=== PATIENT | female | born 1995 ===

== ENCOUNTER 2019-04-09 14:16 | Emergency (ER) | payer OTHER, SELFPAY ==
[2019-04-09 14:49] VITALS: BP 115/74; PULSE 66; RESP 18; TEMP 36.2; O2SAT 99; BMI 26.6
--- NOTE | 2019-04-09 16:34 | ED.WOUNDLAC ---
HPI - Wound/Laceration <AMANDA Denis - Last Filed: 04/09/19 20:57> General Chief Complaint: Wound/Laceration Stated Complaint: cut on pinky,left hand Time Seen by Provider: 04/09/19 16:05 Mode of arrival: Ambulatory History of Present Illness HPI narrative: 24-year-old female presents to the emergency department complaining of a laceration to her left 5th finger while washing dishes. She states she believes she was cup bandage. She states her tetanus was approximately 6 years ago. She denies any numbness, tingling, difficulty moving finger, continued bleeding, severe pain, nausea, vomiting, diarrhea, chest pain, shortness of breath, or other concerns. Related Data Allergies Allergy/AdvReac Type Severity Reaction Status Date / Time No Known Drug Allergies Allergy Verified 04/09/19 15:13 Review of Systems <AMANDA Denis - Last Filed: 04/09/19 20:57> Review of Systems Narrative: REVIEW OF SYSTEMS: GENERAL: Denies fever or chills. HENT: Denies head trauma. EYE: Denies double vision or vision loss. CARDIOVASCULAR: Denies syncope. MUSCULOSKELETAL: Denies weakness, or deformities. INTEGUMENTARY: Complains of left 5th finger laceration, see HPI. NEURO: Denies numbness or tingling. Patient History <AMANDA Denis - Last Filed: 04/09/19 20:57> Medical History No significant medical problems (Acute) Social History Smoking Status: Current every day smoker Smoking Status: Current every day smoker alcohol intake frequency: 0-2 drinks per day Substance Use Type: does not use Exam <AMANDA Denis - Last Filed: 04/09/19 20:57> Initial Vital Signs Initial Vital Signs: Vital Signs Temperature 97.2 F L 04/09/19 14:49 Pulse Rate 66 04/09/19 14:49 Respiratory Rate 18 04/09/19 14:49 Blood Pressure 115/74 04/09/19 14:49 Pulse Oximetry 99 04/09/19 14:49 PHYSICAL EXAMINATION: GENERAL: Well groomed, alert, and cooperative. Answers questions promptly and appropriately. Vital signs noted. HENT: Normocephalic, atraumatic. RESPIRATORY: Normal respiratory rate, trachea midline, airway patent. No stridor, nasal flaring or accessory muscle use. MUSCULOSKELETAL: Full range of motion of 5th finger including extension and flexion against resistance. Normal gait and coordination. Equal tone and mass bilaterally. EXTREMITIES: CMS intact. Moves all extremities. SKIN: Warm, dry, soft, appropriate color for ethnicity. 1cm laceration to left finger between MCP and MIP. Wound bed with subcu tissue visible, no foreign body. Bleeding controlled. No surrounding erythema or excudate. NEURO: Alert and Oriented X 3. Good coordination. PSYCH: Appropriate affect and mood. <Mohit Montana DO - Last Filed: 04/09/19 20:59> Initial Vital Signs Initial Vital Signs: Vital Signs Temperature 97.2 F L 04/09/19 14:49 Pulse Rate 66 04/09/19 14:49 Respiratory Rate 18 04/09/19 14:49 Blood Pressure 115/74 04/09/19 14:49 Pulse Oximetry 99 04/09/19 14:49 Procedures <AMANDA Denis - Last Filed: 04/09/19 20:57> Laceration Repair Laceration 1: Site: upper extremity Side (If applicable): left Size (cm): 1 Description: linear Depth: simple, single layer Local Anesthetic: lidocaine 1% Amount of anesthesia used (mL): 1.5 Pre-repair: irrigated extensively Skin layer closed with: nylon Size (cm): 5-0 Number of sutures: 4 Technique: simple, interrupted Course <AMANDA Denis - Last Filed: 04/09/19 20:57> Course Course Narrative: Patient was updated on Tdap, bacitracin and a Band-Aid was applied to the wound. Orders Ordered: Discontinued Medications Bacitracin (Bacitracin) 1 applic TOP NOW ONE Stop: 04/09/19 16:33 Last Admin: 04/09/19 16:51 Dose: 1 applic Documented by: BILLIE Diphtheria/Tetanus/Acell Pertussis (Adacel) 0.5 ml IM .ONCE ONE Stop: 04/09/19 16:33 Last Admin: 04/09/19 16:50 Dose: 0.5 ml Documented by: BILLIE Lidocaine HCl (Xylocaine 1% (Pf)) 2 ml INJ NOW ONE Stop: 04/09/19 16:06 Last Admin: 04/09/19 16:51 Dose: 2 ml Documented by: BILLIE Vital Signs Vital signs: Vital Signs - 8 hr 04/09/19 14:49 Temperature 97.2 F L Pulse Rate 66 Respiratory Rate 18 Blood Pressure 115/74 Pulse Oximetry 99 <Mohit Montana DO - Last Filed: 04/09/19 20:59> Orders Ordered: Discontinued Medications Bacitracin (Bacitracin) 1 applic TOP NOW ONE Stop: 04/09/19 16:33 Last Admin: 04/09/19 16:51 Dose: 1 applic Documented by: BILLIE Diphtheria/Tetanus/Acell Pertussis (Adacel) 0.5 ml IM .ONCE ONE Stop: 04/09/19 16:33 Last Admin: 04/09/19 16:50 Dose: 0.5 ml Documented by: BILLIE Lidocaine HCl (Xylocaine 1% (Pf)) 2 ml INJ NOW ONE Stop: 04/09/19 16:06 Last Admin: 04/09/19 16:51 Dose: 2 ml Documented by: BILLIE Vital Signs Vital signs: Vital Signs - 8 hr 04/09/19 14:49 Temperature 97.2 F L Pulse Rate 66 Respiratory Rate 18 Blood Pressure 115/74 Pulse Oximetry 99 MDM - Wound/Laceration <AMANDA Denis - Last Filed: 04/09/19 20:57> Medical Records Attestation: I reviewed the patient's medical records. Lab Data Attestation: I reviewed the patient's lab results. MDM Narrative Medical decision making narrative: 24-year-old healthy female presenting for a laceration repair left 5th finger. Simple laceration repair without concern for tendon injury as flexion and extension against resistance was present. Sutures were placed, patient tolerated procedure well. No signs of infection such as erythema or swelling. Patient was encouraged to follow up with her primary care provider in 1 week for repeat suture removal. Return precautions given. Patient to plan of care verbalized understanding. Discharge Plan Departure Patient Disposition: Home Clinical Impression: Laceration Discharge Date/Time: 04/09/19 17:11 Instructions: DI for Laceration Repair Activity Restrictions/Additional Instructions: Thank you for entrusting me with your care today. As discussed, 4 stitches were placed in your finger. Please be seen by your primary care provider or walk-in clinic to remove the sutures in about 7 days. Keep the dressing intact for the next 24 hours. Do not submerge your finger in any water such as dishwater or a hot tub until the sutures are removed. You may continue to place Neosporin on your wound for the next week to help with suture removal. Please watch for signs of infection such as increased swelling, purulent drainage, or redness--if these occur be seen immediately. Return emergency department for any new or worsening symptoms. <Mohit Montana, DO - Last Filed: 04/09/19 20:59> Sign Out Provider Sign Out Attestation: Dr Montana Co-Sign Statement: I was available for consultation during this patient's emergency department visit. This chart is signed by myself for administrative purposes only. I did not have direct contact with this patient during this visit. They were seen independently by the APC.
[2019-04-09] MEDS: TET,DIPH,PERTUSS(ACELL),VAC/PF 0.5 ML SYRINGE IM (16:50)
[2019-04-09] MEDS: BACITRACIN OINT 0.9 GM PCKT 1 APPLIC TOP (16:51)
[2019-04-09] MEDS: LIDOCAINE 1% (PF) 2 ML INJ (16:51)
== END 2019-04-09 17:11 | disposition home or self-care (01) ==
PROVIDERS: Emergency Provider Nurse Practitioner
DX: S61.217A Laceration without foreign body of left little finger without damage to nail, initial encounter (principal); W45.8XXA Other foreign body or object entering through skin, initial encounter; Z23 Encounter for immunization
CPT/HCPCS: 12001; 90471; 99283; 90715

== ENCOUNTER 2019-04-10 00:11 | Emergency (ER) | payer OTHER, SELFPAY ==
[2019-04-10 00:20] VITALS: BP 117/80; PULSE 58; RESP 16; TEMP 36.8; O2SAT 99; BMI 26.6
--- NOTE | 2019-04-10 04:07 | PC.NURSE ---
Pt went outside to smoke.
--- NOTE | 2019-04-10 04:19 | ED.WOUNDLAC ---
HPI - Wound/Laceration General Chief Complaint: Wound/Laceration Stated Complaint: left pinkie finger still bleeding after sutures pl Time Seen by Provider: 04/10/19 04:19 Source: patient Mode of arrival: Ambulatory Limitations: no limitations History of Present Illness HPI narrative: The patient lacerated her left 5th finger on doing dishes at home yesterday. She had laceration repair to the left proximal volar digit. Range of motion remains normal. She developed bleeding from the site after leaving the ER. The bleeding in continued out to the level of she was concerned. She had extended ER wait, the bleeding has stopped. She complains of slight tingling to the tip of the finger. Has normal range of motion in the finger. There are no other injuries. She is left-hand dominant. Related Data Allergies Allergy/AdvReac Type Severity Reaction Status Date / Time No Known Drug Allergies Allergy Verified 04/09/19 15:13 Review of Systems Constitutional Comments: Healthy, no chronic medical problems. Musculoskeletal Comments: Recent left finger injury, bleeding from the injury. Integumentary/Breasts Comments: Left 5th finger laceration. Neurologic Comments: Tingling to the tip of the left thumb finger. Patient History Medical History (Updated 04/10/19 @ 04:43 by Abdiel Sandoval MD) No acute medical problems (Acute) No significant medical problems (Acute) Surgical History (Updated 04/10/19 @ 04:39 by Abdiel Sandoval MD) No significant past surgical history (Acute) Social History Smoking Status: Current every day smoker Smoking Status: Current every day smoker alcohol intake frequency: 0-2 drinks per day Substance Use Type: does not use Exam Initial Vital Signs Initial Vital Signs: Vital Signs Temperature 98.3 F 04/10/19 00:20 Pulse Rate 58 L 04/10/19 00:20 Respiratory Rate 16 04/10/19 00:20 Blood Pressure 117/80 04/10/19 00:20 Pulse Oximetry 99 04/10/19 00:20 Skin Rashes: no rashes Other: The patient has a laceration on the proximal, while or left this finger. She has normal range of motion of the digit. There is dry blood at the site. It is noted there significant contusion, I suspect there was a small hematoma in the laceration site. The site is cleansed. The left digit shows normal range of motion. Additional bleeding cannot be demonstrated. A dressing is placed. Course Vital Signs Vital signs: Vital Signs - 8 hr 04/10/19 00:20 Temperature 98.3 F Pulse Rate 58 L Respiratory Rate 16 Blood Pressure 117/80 Pulse Oximetry 99 Discharge Plan Departure Patient Disposition: Home Clinical Impression: Encounter for re-check of laceration wound, Laceration Instructions: How to Care for a Laceration After Repair Activity Restrictions/Additional Instructions: Take the bandage off in 24 hours. Follow-up with her doctor in 10 days for suture removal. Return the ER as needed.
--- NOTE | 2019-04-10 04:52 | ED_ITS ---
HPI - Wound/Laceration General Chief Complaint: Wound/Laceration Stated Complaint: left pinkie finger still bleeding after sutures pl Time Seen by Provider: 04/10/19 04:19 Source: patient Mode of arrival: Ambulatory Limitations: no limitations Related Data Allergies Allergy/AdvReac Type Severity Reaction Status Date / Time No Known Drug Allergies Allergy Verified 04/09/19 15:13 Patient History Medical History (Updated 04/10/19 @ 04:53 by Abdiel Sandoval MD) No acute medical problems (Acute) No significant medical problems (Acute) Surgical History (Updated 04/10/19 @ 04:39 by Abdiel Sandoval MD) No significant past surgical history (Acute) Social History Smoking Status: Current every day smoker Smoking Status: Current every day smoker alcohol intake frequency: 0-2 drinks per day Substance Use Type: does not use Exam Initial Vital Signs Initial Vital Signs: Vital Signs Temperature 98.3 F 04/10/19 00:20 Pulse Rate 58 L 04/10/19 00:20 Respiratory Rate 16 04/10/19 00:20 Blood Pressure 117/80 04/10/19 00:20 Pulse Oximetry 99 04/10/19 00:20 Course Vital Signs Vital signs: Vital Signs - 8 hr 04/10/19 00:20 Temperature 98.3 F Pulse Rate 58 L Respiratory Rate 16 Blood Pressure 117/80 Pulse Oximetry 99 Discharge Plan Departure Patient Disposition: Home Clinical Impression: Encounter for re-check of laceration wound Instructions: How to Care for a Laceration After Repair Activity Restrictions/Additional Instructions: Take the bandage off in 24 hours. Follow-up with her doctor in 10 days for suture removal. Return the ER as mun[facility]leman Stand Alone Forms: Work Release Note
== END 2019-04-10 04:59 | disposition home or self-care (01) ==
PROVIDERS: Emergency Provider Emergency Medicine
DX: Z48.00 Encounter for change or removal of nonsurgical wound dressing (principal); S61.217D Laceration without foreign body of left little finger without damage to nail, subsequent encounter
CPT/HCPCS: 99281